=== PATIENT | female | born 1940 | race Caucasian/White ===

== ENCOUNTER → 2025-05-15 09:47 | Outpatient (CLI) | payer MEDICARE, SELFPAY ==
--- NOTE | 2025-05-15 09:54 | DI.NM.S_ITS ---
PROCEDURE: NM PAXTON PERF SPECT SINGLE STUDY Resting myocardial perfusion SPECT, with gated imaging and ejection fraction RADIOPHARMACEUTICAL: 24.8 mCi 99m-Tc sestamibi intravenously. INDICATIONS: Chest pain TECHNIQUE: Radiopharmaceutical was injected at rest. SPECT images were obtained. SPECT myocardial perfusion images were displayed in short axis, horizontal long axis, and vertical long axis views. Gated images were reviewed using [employer] software. COMPARISON: None. FINDINGS: Raw data: There is good tracer uptake by the myocardium. No significant motion artifacts. Left ventricle function: Gated images demonstrate left ventricle wall thickening. No segmental wall motion abnormalities. No transient ischemic dilation. Left ventricle resting end-diastolic volume is 67mL. Left ventricle resting ejection fraction is 87%; normal values are above 45%. Myocardial perfusion: There is normal distribution of activity in the left and right ventricular myocardium at rest. No perfusion defects at rest. IMPRESSION: Normal resting perfusion. Normal resting left ventricular size, wall motion, and systolic function (EF 87%). No stress test performed as the patient declined it. Dictated by: Haily Medina MD on 06/13/2025 at 16:43 Approved by: Haily Medina MD on 06/13/2025 at 16:45
== END ==
PROVIDERS: PCP Physician Assistant Medical; Referring Provider Physician Assistant Medical; Visit Provider Physician Assistant Medical
DX: R07.9 Chest pain, unspecified (principal)
CPT/HCPCS: 78451; A9502